=== PATIENT | female | born 1955 | race Two or more races ===

== ENCOUNTER → 2017-01-09 | Outpatient (CLI) | payer OTHER | END | disposition home or self-care (01) | LOC: CFH 16:04 | PROVIDERS: ATTEND Specialist | DX: Z12.31 Encounter for screening mammogram for malignant neoplasm of breast (principal) | CPT/HCPCS: G0202 ==

== ENCOUNTER → 2018-01-13 | Outpatient (CLI) | payer OTHER | END | disposition home or self-care (01) | LOC: EDSTATUS 07:30 → CFH 07:42 | PROVIDERS: ATTEND Specialist | DX: Z12.31 Encounter for screening mammogram for malignant neoplasm of breast (principal) | CPT/HCPCS: 77063; 77067 ==

== ENCOUNTER 2020-10-27 07:59 | Outpatient (CLI) | payer MEDICARE | END 2020-10-27 23:59 | disposition home or self-care (01) | LOC: CFH 07:59 | PROVIDERS: ATTEND Internal Medicine Cardiovascular Disease | DX: I08.1 Rheumatic disorders of both mitral and tricuspid valves (principal); R07.9 Chest pain, unspecified; R00.2 Palpitations | CPT/HCPCS: 93306 ==

== ENCOUNTER 2020-10-30 14:25 | Outpatient (CLI) | payer MEDICARE ==
[2020-10-30] MEDS ORDERED: OMNIPAQUE 350 MG/ML, 100ML BOTTLE ONE (15:17)
== END 2020-10-30 23:59 | disposition home or self-care (01) ==
LOC: CFH 14:25
PROVIDERS: ATTEND Family Medicine
DX: E78.5 Hyperlipidemia, unspecified (principal)
CPT/HCPCS: 75574; Q9967

== ENCOUNTER 2020-11-02 14:34 | Emergency (ER) | payer MEDICARE ==
[~2020-11-02] VITALS: Ht 157.5 cm; Wt 69.3 kg
--- NOTE | 2020-11-02 15:50 | NUR ---
TASK RN COVERING MEAL BREAK. PT MEDICATED PER ERP ORDER. VSS/UPDATED IN COMPUTER.
[2020-11-02 15:52] LABS: BASOPHILS % (AUTO) 1 % (0-1); EOSINOPHILS % (AUTO) 1 % (1-7); LYMPHOCYTES % (AUTO) 25 % (22-44); MD NO; MEAN CORPUSCULAR HEMOGLOBIN 33.6 pg (27.0-34.8); MEAN PLATELET VOLUME 7.5 fL (7.4-10.4); MONOCYTES % (AUTO) 9 % (2-9); NEUTROPHILS % (AUTO) 65 % (42-75); PLATELET COUNT 213 x10^3/uL (130-400); RED BLOOD COUNT 4.16 x10^6/uL (3.82-5.3); RED CELL DISTRIBUTION WIDTH 12.7 % (9.6-15.2)
[2020-11-02 16:05] LABS: ANION GAP 4 mmol/L (5-15); CALCIUM 9.3 mg/dL (8.5-10.1); CHLORIDE 109 mmol/L (98-107); CREATININE 0.91 mg/dL (0.55-1.02)
[2020-11-02 16:09] LABS: TROPONIN I < 0.015 ng/mL (0.000-0.045)
[2020-11-02 17:54] VITALS: BP 152/74
== END 2020-11-02 17:55 | disposition home or self-care (01) ==
LOC: ED 15:04
DX: I10 Essential (primary) hypertension (principal); F41.1 Generalized anxiety disorder; R94.31 Abnormal electrocardiogram [ECG] [EKG]
CPT/HCPCS: 36415; 80048; 82040; 83880; 84484; 85025; 93005; 99284; Q0177